=== PATIENT | male | born 1965 | race African-American/Black ===

== ENCOUNTER 2017-06-12 06:17 | Day surgery (SDC) | payer BC, OTHER ==
[2017-06-11 17:44] VITALS: BMI 28.0
[2017-06-12 10:48] VITALS: BP 128/93; PULSE 57; TEMP 97.7
== END 2017-06-12 10:50 | disposition home or self-care (01) ==
LOC: JASU-SURG 06:17
PROVIDERS: ATTEND Orthopaedic Surgery
PROC: 0SBC4ZZ Excision of Right Knee Joint, Percutaneous Endoscopic Approach (ICD-10-PCS; principal; 2017-06-12)
PROC: 0SBC4ZZ Excision of Right Knee Joint, Percutaneous Endoscopic Approach (ICD-10-PCS; 2017-06-12)
DX: M23.8X1 Other internal derangements of right knee (principal)
CPT/HCPCS: 88304-TC; 94760

== ENCOUNTER 2017-06-16 07:49 | Emergency (ER) | payer OTHER ==
[2017-06-16 08:00] VITALS: BP 136/54; PULSE 67; TEMP 98; BMI 28.0
--- NOTE | 2017-06-16 08:15 | PDOC ---
History of Present Illness - General Chief Complaint: Revisit,Wound Recheck Stated Complaint: WOUND CHECK Time Seen by Provider: 06/16/17 08:13 History Source: Patient Exam Limitations: No Limitations - History of Present Illness Initial Comments: 06/16/17 08:14 CHIEF COMPLAINT: Feels dressing to right knee is too tight HISTORY OF PRESENT ILLNESS: Patient is a 52-year-old male, history of asthma and meniscal injury to right knee status post meniscal repair on 06/12/[address] Carson. Here today complaining dressing is too tight. Denies any numbness or tingling, no erythema. No fever. Able to ambulate with use of a cane. She has been walking around states he can't still has not been elevating leg. Denies any calf pain, no chest pain or shortness of breath. REVIEW OF SYSTEMS: GENERAL: Afebrile, A&O x3 RESPIRATORY: No cough, wheezing, or hemoptysis. CARDIAC: No CP or SOB MUSCULOSKELETAL: Pain to right knee, postsurgical swelling to generalized right leg. SKIN : No erythema, no edema. NEUROLOGICAL: Denies any numbness or tingling. PHYSICAL EXAM: GENERAL: The patient is awake, alert, and fully oriented, in no acute distress. HEAD: Normal with no signs of trauma. RESPIRATORY: Lungs clear bilaterally no rhonchi, rales, or wheezes CARDIAC: S1-S2 audible, no murmur rub or gallop EXTREMITIES: Decreased range of motion to right knee related to pain and dressing, limited examination related to postsurgical changes. +2 edema to generalized leg. No visible ecchymosis. +3 popliteal pulse. Negative Homans sign. No calf pain or tenderness, no erythema. MUSCULOSKELETAL: No spinal point tenderness. SKIN: Warm, Dry, normal turgor, no erythema. 06/16/17 09:33 Past History - Past Medical History Allergies/Adverse Reactions: Allergies Allergy/AdvReac Type Severity Reaction Status Date / Time No Known Drug Allergies Allergy Verified 06/16/17 08:00 Home Medications: Ambulatory Orders Oxycodone HCl/Acetaminophen [Percocet 5-325 mg Tablet -] 1 - 2 tab PO Q6H #60 tab MDD 6 06/12/17 Asthma: Yes COPD: No Diabetes: No GI Disorders: No Disorders: No HTN: No Hypercholesterolemia: No Liver Disease: No Thyroid Disease: No - Suicide/Smoking/Psychosocial Hx Smoking History: Never smoked Have you smoked in the past 12 months: Yes Cigars Per Day: 1 Hx Alcohol Use: No Drug/Substance Use Hx: No Substance Use Type: None *Physical Exam - Vital Signs Last Vital Signs Temp Pulse Resp BP Pulse Ox 98 F 67 20 136/54 99 06/16/17 07:55 06/16/17 07:55 06/16/17 07:55 06/16/17 07:55 06/16/17 07:55 Medical Decision Making - Medical Decision Making 06/16/17 08:41 A/P: Patient with postsurgical pain to right knee is taking Percocet for pain and is controlled, ambulating well feels that dressing to right knee is too tight however dressing is intact. There is +2 edema noted to generalized leg. No calf pain.. I have paged Dr. Salazar to discuss. 06/16/17 09:33 Leo wrap removed from dressing and rewrapped, patient encouraged to keep leg elevated. I spoke to Dr. Salazar who states patient's leg will be edematous if not elevating. I have encouraged patient to increased elevation, ice to knee, follow-up with Dr. Carson on Saturday. Dr. Salazar agrees with current plan of care. *DC/Admit/Observation/Transfer Diagnosis at time of Disposition: Visit for wound check - Discharge Dispostion Disposition: HOME Condition at time of disposition: Stable Admit: No - Referrals Referrals: Deniz Carson MD [Staff Physician] - - Patient Instructions Additional Instructions: Ice and elevate when at rest If any increased pain, calf pain, fever, or any other concerns return to ER Please call Dr. Carson on Saturday to discuss your visit here. - Post Discharge Activity
== END 2017-06-16 09:18 | disposition home or self-care (01) ==
LOC: JERFT 07:49
DX: Z48.01 Encounter for change or removal of surgical wound dressing (principal)
CPT/HCPCS: 99281-25

== ENCOUNTER 2017-11-20 06:14 | Emergency (ER) | payer BC, OTHER | END 2017-11-20 06:41 | disposition left against medical advice (07) | LOC: JER 06:14 | DX: Z53.21 Procedure and treatment not carried out due to patient leaving prior to being seen by health care provider (principal) | CPT/HCPCS: 99281-25 ==

== ENCOUNTER 2018-10-23 13:29 | Emergency (ER) | payer BC, OTHER ==
--- NOTE | 2018-10-23 14:01 | PDOC ---
Rapid Medical Evaluation Chief Complaint: Head/Neck problem Time Seen by Provider: 10/23/18 13:58 Medical Evaluation: Allergies Allergy/AdvReac Type Severity Reaction Status Date / Time No Known Drug Allergies Allergy Verified 06/16/17 08:00 10/23/18 13:59 53 year old hit head on a truck prior to arrival. denies loc, nausea/ vomiting PE: patient alert ox3. small hematoma to left frontal area. A: scalp hematoma; head injury P: none patient to ER for further management of care. Discharge Disposition - Diagnosis Hematoma of scalp Qualifiers: Encounter type: initial encounter Qualified Code(s): S00.03XA - Contusion of scalp, initial encounter Head injury Qualifiers: Encounter type: initial encounter Qualified Code(s): S09.90XA - Unspecified injury of head, initial encounter - Referrals - Patient Instructions - Post Discharge Activity
[2018-10-23 14:05] VITALS: BP 126/75; PULSE 54; TEMP 98.3; BMI 28.0
--- NOTE | 2018-10-23 14:51 | PDOC ---
History of Present Illness - General Chief Complaint: Head/Neck problem Stated Complaint: HEAD INJURY Time Seen by Provider: 10/23/18 13:58 History Source: Patient Exam Limitations: No Limitations Past History - Travel Traveled outside of the country in the last 30 days: No Close contact w/someone who was outside of country & ill: No - Past Medical History Allergies/Adverse Reactions: Allergies Allergy/AdvReac Type Severity Reaction Status Date / Time No Known Drug Allergies Allergy Verified 06/16/17 08:00 Home Medications: Ambulatory Orders Albuterol Sulfate Inhaler - [Ventolin HFA Inhaler -] 1 puff IH Q4H PRN 10/23/18 Asthma: Yes COPD: No Diabetes: No GI Disorders: No Disorders: No HTN: No Hypercholesterolemia: No Liver Disease: No Thyroid Disease: No - Immunization History Immunization Up to Date: Yes - Suicide/Smoking/Psychosocial Hx Smoking History: Current some day smoker Have you smoked in the past 12 months: Yes Cigars Per Day: 4 Information on smoking cessation initiated: Yes Hx Alcohol Use: No Drug/Substance Use Hx: No Substance Use Type: None Review of Systems - Review of Systems Able to Perform ROS?: Yes Comments:: 10/23/18 14:49 CONSTITUTIONAL: Absent: fever, chills, diaphoresis, generalized weakness, malaise, loss of appetite HEENT: Absent: rhinorrhea, nasal congestion, throat pain, throat swelling, difficulty swallowing, mouth swelling, ear pain, eye pain, visual Changes MUSCULOSKELETAL: Absent: myalgia, arthralgia, joint swelling SKIN: Present: hematoma Absent: rash, itching, pallor NEUROLOGIC: Absent: headache, focal weakness or paresthesias, dizziness, unsteady gait, seizure, mental status changes, bladder or bowel incontinence PSYCHIATRIC: Absent: anxiety, depression, suicidal or homicidal ideation, hallucinations. Is the patient limited Stateless proficient: No *Physical Exam - Vital Signs Last Vital Signs Temp Pulse Resp BP Pulse Ox 98.3 F 54 L 16 126/75 97 10/23/18 13:59 10/23/18 13:59 10/23/18 13:59 10/23/18 13:59 10/23/18 13:59 - Physical Exam Comments: 10/23/18 15:06 GENERAL: The patient is awake, alert, and fully oriented, in no acute distress. HEAD: Normal with no signs of trauma. EYES: Pupils equal, round and reactive to light, extraocular movements intact, sclera anicteric, conjunctiva clear. EXTREMITIES: Normal range of motion, no edema. NEUROLOGICAL: Normal speech, normal gait. PSYCH: Normal mood, normal affect. SKIN: Hematoma present to the L forehead approximately 1cm round. No active bleeding or laceration. Warm, Dry, normal turgor, no rashes or lesions noted. Medical Decision Making - Medical Decision Making 10/23/18 15:08 The patient is a 53-year-old male with no past medical history who presents to the emergency department today for a bump to his forehead. The patient states he was at work when he banged the top of his head on a truck. He states that he wanted to get the bump checked out. He denies losing consciousness or vomiting. Denies lightheadedness and dizziness. A/P: Hematoma On exam pt with a 1cm round hematoma to the L forehead. No laceration present. Pt neurologically intact with no focal findings No LOC Will give symptomatic treatment for hematoma. DC home I discussed the physical exam findings, ancillary test results and final diagnoses with the patient. I answered all of the patient's questions. The patient was satisfied with the care received and felt comfortable with the discharge plan and treatment plan. The Patient agrees to follow up with the primary care physician/specialist within 24-72 hours. Return precautions were given. *DC/Admit/Observation/Transfer Diagnosis at time of Disposition: Hematoma of scalp Qualifiers: Encounter type: initial encounter Qualified Code(s): S00.03XA - Contusion of scalp, initial encounter Head injury Qualifiers: Encounter type: initial encounter Qualified Code(s): S09.90XA - Unspecified injury of head, initial encounter - Discharge Dispostion Disposition: HOME Condition at time of disposition: Stable Decision to Admit order: No - Referrals Referrals: Arnoldo Alberts MD [Primary Care Provider] - - Patient Instructions Printed Discharge Instructions: DI for Closed Head Injury Additional Instructions: You were evaluated for your scalp hematoma This is a bruise Apply ice to the area for twenty minute intervals You may switch to heat in one week Take Ibuprofen 800mg (4 200mg tabs) every 8 hours as needed for pain Follow up with your primary care doctor this week Return to the ER for any new or worsening symptoms - Post Discharge Activity Forms/Work/School Notes: Back to Work
== END 2018-10-23 14:55 | disposition home or self-care (01) ==
LOC: JER 13:29 → JERFT 13:29
DX: S00.83XA Contusion of other part of head, initial encounter (principal); V68.4XXA Person boarding or alighting a heavy transport vehicle injured in noncollision transport accident, initial encounter; Y92.488 Other paved roadways as the place of occurrence of the external cause; Y93.89 Activity, other specified; Y99.0 Civilian activity done for income or pay
CPT/HCPCS: 99281-25

== ENCOUNTER 2020-04-01 23:26 | Inpatient (IN) | payer BC ==
[2020-04-02] MEDS ORDERED: LIDOCAINE HCL 2% JELLY 10 ML CARTRIDGE UR ONE (00:30)
[2020-04-02] MEDS ORDERED: LIDOCAINE HCL 2% JELLY (5 ML/TUBE) ONE (00:32)
[2020-04-02 00:50] LABS: BASO % 0.2 % (0-2.0); EOS % 0.7 % (0-4.5); HEMATOCRIT 37.4 % (35.4-49); HEMOGLOBIN 12.7 GM/dL (11.7-16.9); LYMPH % 8.2 % (8-40); MCH 30.8 pg (25.7-33.7); MCHC 33.9 g/dl (32.0-35.9); MEAN CELL VOLUME 90.8 fl (80-96); MEAN PLT VOLUME 7.8 fl (7.5-11.1); MONO % 8.9 % (3.8-10.2); PLATELET COUNT 301 K/MM3 (134-434); RBC 4.12 M/mm3 (4.00-5.60); RDW 13.3 % (11.9-15.9); WHITE BLOOD COUNT 9.1 K/mm3 (4.0-10.0)
[2020-04-02 01:15] LABS: POTASSIUM 4.6 mmol/L (3.5-5.1)
[2020-04-02 01:17] LABS: CALCIUM 8.7 mg/dL (8.5-10.1)
[2020-04-02 01:18] LABS: ALBUMIN 3.6 g/dl (3.4-5.0); BLOOD UREA NITROGEN 26.9 mg/dL (7-18); MAGNESIUM 2.3 mg/dL (1.8-2.4)
[2020-04-02 01:21] LABS: CREATININE 5.7 mg/dL (0.55-1.3); PHOSPHOROUS 3.8 mg/dL (2.5-4.9)
[2020-04-02 01:22] LABS: BILIRUBIN,TOTAL 0.5 mg/dL (0.2-1); TOT PROT 7.5 g/dl (6.4-8.2)
[2020-04-02 01:28] LABS: EPI CELLS 4 /uL (0-25.1); HYALINE CASTS 0 /uL (0-3.1); PH,URINE 5.5 (5.0-8.0); URINE APPEARANCE CLEAR; URINE BACTERIA 4 /uL (0-1359); URINE BILIRUBIN NEGATIVE (NEGATIVE); URINE COLOR YELLOW; URINE GLUCOSE (UA) NEGATIVE (NEGATIVE); URINE KETONE NEGATIVE (NEGATIVE); URINE LEUK ESTERASE NEGATIVE (NEGATIVE); URINE NITRITE NEGATIVE (NEGATIVE); URINE PROTEIN NEGATIVE (NEGATIVE); URINE RBC 27 /uL (0-23.9); URINE UROBILINOGEN 0.2 mg/dL (0.2-1.0); URINE WBC 23 /uL (0-25.8)
[2020-04-02] MEDS ORDERED: SODIUM CHLORIDE 1,000 ML IV STA (01:50)
[2020-04-02] MEDS ORDERED: LACTATED RINGERS SOLUTION 1,000 ML IV SCH (05:15)
[2020-04-02] MEDS ORDERED: ONDANSETRON 4 MG/2 ML VIAL IVPUSH PRN (05:17)
[2020-04-02] MEDS ORDERED: ACETAMINOPHEN 325 MG TABLET (FP) ONE (05:56)
[2020-04-02] MEDS ORDERED: HEPARIN NA (PORCINE) 5,000 UNITS/ML 1ML VIAL ONE (05:57)
[2020-04-02] MEDS: HEPARIN NA (PORCINE) 5,000 UNITS/ML 1ML VIAL SQ SCH ×3 (06:02→21:10)
[2020-04-02] MEDS: ACETAMINOPHEN 325 MG TABLET (FP) PO PRN ×4 (06:02→21:30)
[2020-04-02] MEDS ORDERED: TAMSULOSIN HCL 0.4 MG CAP ONE (07:56)
[2020-04-02] MEDS: TAMSULOSIN HCL 0.4 MG CAP PO SCH (08:02)
[2020-04-02] MEDS ORDERED: ALBUTEROL SO4 HFA INHALER IH PRN (11:18)
[2020-04-02 11:24] VITALS: BMI 26.6
[2020-04-02] MEDS: SODIUM CHLORIDE 1,000 ML IV SCH ×2 (12:15→20:34)
[2020-04-02 16:54] LABS: POTASSIUM 4.1 mmol/L (3.5-5.1)
[2020-04-02 16:56] LABS: CALCIUM 8.1 mg/dL (8.5-10.1)
[2020-04-02 16:57] LABS: ALBUMIN 2.8 g/dl (3.4-5.0)
[2020-04-02 17:00] LABS: CREATININE 1.8 mg/dL (0.55-1.3)
[2020-04-02 17:01] LABS: BILIRUBIN,TOTAL 0.3 mg/dL (0.2-1)
[2020-04-02 19:03] LABS: PHENCYCLIDINE,URINE NEGATIVE ng/ml (CUTOFF=25); URINE BARBITURATES NEGATIVE ng/ml (CUTOFF=200); URINE BENZODIAZEPINES NEGATIVE ng/ml (CUTOFF=200)
[2020-04-02 19:05] LABS: METHADONE, UR NEGATIVE ng/ml (CUTOFF=300)
[2020-04-02 19:27] LABS: URINE AMPHETAMINES NEGATIVE ng/ml (CUTOFF=500)
[2020-04-02 19:29] LABS: COCAINE, UR POSITIVE ng/ml (CUTOFF=300); OPIATES, URI POSITIVE ng/ml (CUTOFF=300)
[2020-04-02] MEDS ORDERED: PT OWN MED DRAWER 7, Y5N ONE (21:01)
[2020-04-02] MEDS: FLUTICASONE PROP 0.05% 16 GM NASAL SPRAY NS SCH (21:10)
[2020-04-02] MEDS: oxyCODONE HCL 5 MG TABLET PO PRN (21:29)
[2020-04-03] MEDS: ACETAMINOPHEN 325 MG TABLET (FP) PO PRN ×4 (00:48→17:14)
[2020-04-03] MEDS: SODIUM CHLORIDE 1,000 ML IV SCH ×3 (03:28→21:57)
[2020-04-03] MEDS: HEPARIN NA (PORCINE) 5,000 UNITS/ML 1ML VIAL SQ SCH ×3 (05:34→21:56)
[2020-04-03] MEDS: oxyCODONE HCL 5 MG TABLET PO PRN ×2 (05:36→17:12)
[2020-04-03] MEDS: TAMSULOSIN HCL 0.4 MG CAP PO SCH (09:02)
[2020-04-03] MEDS: FLUTICASONE PROP 0.05% 16 GM NASAL SPRAY NS SCH (09:03)
[2020-04-03 12:16] LABS: HEMATOCRIT 35.2 % (35.4-49); MCH 31.1 pg (25.7-33.7); MCHC 34.2 g/dl (32.0-35.9); MEAN CELL VOLUME 91.1 fl (80-96); MEAN PLT VOLUME 7.9 fl (7.5-11.1); PLATELET COUNT 276 K/MM3 (134-434); RBC 3.86 M/mm3 (4.00-5.60); WHITE BLOOD COUNT 6.4 K/mm3 (4.0-10.0)
[2020-04-03 12:31] LABS: POTASSIUM 4.4 mmol/L (3.5-5.1)
[2020-04-03 12:33] LABS: CALCIUM 8.4 mg/dL (8.5-10.1)
[2020-04-03 12:34] LABS: ALBUMIN 2.7 g/dl (3.4-5.0); MAGNESIUM 2.1 mg/dL (1.8-2.4)
[2020-04-03 12:37] LABS: PHOSPHOROUS 2.2 mg/dL (2.5-4.9)
[2020-04-03 12:38] LABS: BILIRUBIN,TOTAL 0.3 mg/dL (0.2-1); TOT PROT 6.2 g/dl (6.4-8.2)
[2020-04-03] MEDS ORDERED: BISACODYL 5 MG TABLET.DR (FP) PO ONE (20:07)
[2020-04-03] MEDS ORDERED: MELATONIN 5 MG TABLETS PO ONE (22:35)
[2020-04-04] MEDS: HEPARIN NA (PORCINE) 5,000 UNITS/ML 1ML VIAL SQ SCH (05:18)
[2020-04-04] MEDS: oxyCODONE HCL 5 MG TABLET PO PRN (06:27)
[2020-04-04] MEDS: ACETAMINOPHEN 325 MG TABLET (FP) PO PRN (06:27)
[2020-04-04] MEDS: TAMSULOSIN HCL 0.4 MG CAP PO SCH (08:33)
[2020-04-04] MEDS ORDERED: IBUPROFEN 600 MG TABLET (FP) PO PRN (08:51)
[2020-04-04] MEDS ORDERED: PT OWN MED DRAWER 7, Y5N ONE (09:49)
[2020-04-04] MEDS: FLUTICASONE PROP 0.05% 16 GM NASAL SPRAY NS SCH (11:07)
[2020-04-04] MEDS ORDERED: MELATONIN 5 MG TABLETS PO ONE ×2 (22:19→22:45)
[2020-04-05] MEDS: TAMSULOSIN HCL 0.4 MG CAP PO SCH (08:34)
[2020-04-05] MEDS: FLUTICASONE PROP 0.05% 16 GM NASAL SPRAY NS SCH (09:59)
[2020-04-05 10:55] VITALS: BP 138/85; PULSE 77; TEMP 97.5
== END 2020-04-05 14:35 | disposition home or self-care (01) | DRG 684 ==
LOC: JER 23:26 → JERBED 04-02 02:55 → J5S 04-02 10:51
PROVIDERS: ADMIT Hospitalist; ATTEND Internal Medicine
DX: N17.9 Acute kidney failure, unspecified (principal); R33.9 Retention of urine, unspecified; F14.920 Cocaine use, unspecified with intoxication, uncomplicated; F17.210 Nicotine dependence, cigarettes, uncomplicated; Z87.09 Personal history of other diseases of the respiratory system; Z87.438 Personal history of other diseases of male genital organs
CPT/HCPCS: 36415; 71045-TC-FY; 76775-TC; 80053; 80307; 81003; 83735; 84100; 85025; 85027; 87086; 93005; 93010; 99285-25; C9803; J1644; U0003

== ENCOUNTER 2020-06-17 14:22 | Emergency (ER) | payer BC ==
[2020-06-17 15:33] VITALS: BP 115/69; PULSE 83; TEMP 98.1; BMI 24.3
== END 2020-06-17 18:40 | disposition left against medical advice (07) ==
LOC: JER 14:22
DX: R10.31 Right lower quadrant pain (principal); K35.30 Acute appendicitis with localized peritonitis, without perforation or gangrene
CPT/HCPCS: 36415; 74177-TC; 80053; 81003; 83690; 85025; 87086; 99283-25; 99285-25; Q9967

== ENCOUNTER → 2020-06-17 | Emergency (ER) | payer BC ==
[2020-06-17 11:47] VITALS: BP 114/68; PULSE 80; TEMP 98.1; BMI 28.0
[2020-06-17 13:04] LABS: BASO % 0.4 % (0-2.0); EOS % 2.2 % (0-4.5); HEMOGLOBIN 12.4 GM/dL (11.7-16.9); LYMPH % 10.7 % (8-40); MCH 31.2 pg (25.7-33.7); MCHC 34.3 g/dl (32.0-35.9); MEAN CELL VOLUME 90.8 fl (80-96); MEAN PLT VOLUME 7.8 fl (7.5-11.1); MONO % 5.7 % (3.8-10.2); PLATELET COUNT 243 K/MM3 (134-434); RBC 3.97 M/mm3 (4.00-5.60); RDW 13.9 % (11.9-15.9); WHITE BLOOD COUNT 10.8 K/mm3 (4.0-10.0)
[2020-06-17 13:24] LABS: CALCIUM 9.2 mg/dL (8.5-10.1)
[2020-06-17 13:25] LABS: ALBUMIN 3.6 g/dl (3.4-5.0); BLOOD UREA NITROGEN 17.5 mg/dL (7-18)
[2020-06-17 13:26] LABS: URINE APPEARANCE CLEAR; URINE BILIRUBIN NEGATIVE (NEGATIVE); URINE COLOR YELLOW; URINE GLUCOSE (UA) NEGATIVE (NEGATIVE); URINE KETONE TRACE (NEGATIVE); URINE LEUK ESTERASE NEGATIVE (NEGATIVE); URINE NITRITE NEGATIVE (NEGATIVE); URINE PROTEIN NEGATIVE (NEGATIVE); URINE UROBILINOGEN 0.2 mg/dL (0.2-1.0)
[2020-06-17 13:28] LABS: CREATININE 1.2 mg/dL (0.55-1.3)
[2020-06-17 13:29] LABS: BILIRUBIN,TOTAL 0.5 mg/dL (0.2-1)
== END | disposition left against medical advice (07) ==
LOC: JER 11:32
DX: R10.31 Right lower quadrant pain (principal)
CPT/HCPCS: 36415; 80053; 81003; 83690; 85025; 87086; 99283-25

== ENCOUNTER 2020-12-14 18:33 | Inpatient (IN) | payer BC, OTHER ==
[2020-12-14 19:25] VITALS: BMI 26.7
[2020-12-14] MEDS ORDERED: guaiFENesin 200 MG/10 ML 10 ML UNIT-DOSE CUPS PO PRN (20:26)
[2020-12-14] MEDS ORDERED: NALOXONE (NARCAN) HCL 4 MG/0.1 ML SPRAY NS PRN (20:26)
[2020-12-14] MEDS ORDERED: BISMUTH SUBSALICYLATE 524 MG/30 ML PO PRN (20:26)
[2020-12-14] MEDS ORDERED: IBUPROFEN 400 MG TABLET (FP) PO PRN (20:26)
[2020-12-14] MEDS ORDERED: ACETAMINOPHEN 325 MG TABLET (FP) PO PRN ×2 (20:26)
[2020-12-14] MEDS ORDERED: MAGNESIUM CITRATE 300 ML BOTTLE PO PRN (20:26)
[2020-12-14] MEDS ORDERED: NICOTINE 10 MG CARTRIDGE (INHALER) IH PRN (20:26)
[2020-12-14] MEDS ORDERED: methaDONE HCL 10 MG TABLET (FOR DETOX USE ONLY) PO ONE (20:26)
[2020-12-14] MEDS ORDERED: NALOXONE HCL 0.4 MG/ML VIAL IM PRN (20:26)
[2020-12-14] MEDS ORDERED: P-EPHED 60MG/TRIPROLIDI 2.5MG TABLET PO PRN (20:26)
[2020-12-14] MEDS ORDERED: cloNIDine HCL 0.1 MG TABLET PO PRN (20:26)
[2020-12-14] MEDS ORDERED: MAGNESIUM HYDROX 2400MG/30ML ORAL SUSPENSION 30 ML CUP PO PRN (20:26)
[2020-12-14] MEDS ORDERED: MAG HYDROX/AL HYDROX/SIMETH 30 ML UNIT-DOSE CUP PO PRN (20:26)
[2020-12-14] MEDS ORDERED: DICYCLOMINE HCL 10 MG CAPSULE PO PRN (20:26)
[2020-12-14] MEDS ORDERED: MENTHOL/PHENOL 1 EACH UD MM PRN (20:26)
[2020-12-14] MEDS: THIAMINE HCL 100 MG TABLET (FP) PO SCH (22:17)
[2020-12-14] MEDS: MELATONIN 5 MG TABLETS PO SCH (22:17)
[2020-12-15] MEDS: TAMSULOSIN HCL 0.4 MG CAP PO SCH (08:00)
[2020-12-15] MEDS ORDERED: methaDONE HCL 10 MG TABLET (FOR DETOX USE ONLY) ONE (09:39)
[2020-12-15] MEDS: PRENATAL VITAMINS W/ FOLIC ACID TABLET (FP) PO SCH (10:06)
[2020-12-15 11:06] LABS: ALBUMIN 3.2 g/dl (3.4-5.0); BLOOD UREA NITROGEN 12.2 mg/dL (7-18)
[2020-12-15 11:09] LABS: CREATININE 1.3 mg/dL (0.55-1.3)
[2020-12-15 11:11] LABS: BILIRUBIN,TOTAL 0.3 mg/dL (0.2-1); TOT PROT 6.5 g/dl (6.4-8.2)
[2020-12-15 11:14] LABS: HEMATOCRIT 39.3 % (35.4-49); HEMOGLOBIN 13.3 GM/dL (11.7-16.9); MCH 30.9 pg (25.7-33.7); MEAN PLT VOLUME 7.8 fl (7.5-11.1); PLATELET COUNT 241 10^3/uL (134-434); RBC 4.32 M/mm3 (4.00-5.60); RDW 13.5 % (11.9-15.9); WHITE BLOOD COUNT 4.6 K/mm3 (4.0-10.0)
[2020-12-15] MEDS: diazePAM 5 MG TABLET PO PRN ×2 (13:03→22:29)
[2020-12-15] MEDS: MELATONIN 5 MG TABLETS PO SCH (22:28)
[2020-12-15] MEDS: THIAMINE HCL 100 MG TABLET (FP) PO SCH (22:28)
[2020-12-15] MEDS: METHOCARBAMOL 500 MG TABLET PO PRN (22:28)
[2020-12-15] MEDS: ALBUTEROL SO4 HFA INHALER IH PRN (22:28)
[2020-12-16] MEDS: diazePAM 5 MG TABLET PO PRN ×4 (05:33→22:28)
[2020-12-16] MEDS ORDERED: methaDONE HCL 10 MG TABLET (FOR DETOX USE ONLY) PO ONE (10:00)
[2020-12-16] MEDS: PRENATAL VITAMINS W/ FOLIC ACID TABLET (FP) PO SCH (10:15)
[2020-12-16] MEDS: TAMSULOSIN HCL 0.4 MG CAP PO SCH (10:16)
[2020-12-16] MEDS: METHOCARBAMOL 500 MG TABLET PO PRN ×2 (10:18→17:14)
[2020-12-16] MEDS: ALBUTEROL SO4 HFA INHALER IH PRN (17:17)
[2020-12-16] MEDS: THIAMINE HCL 100 MG TABLET (FP) PO SCH (22:26)
[2020-12-16] MEDS: MELATONIN 5 MG TABLETS PO SCH (22:26)
[2020-12-17] MEDS: diazePAM 5 MG TABLET PO PRN (06:46)
[2020-12-17] MEDS: TAMSULOSIN HCL 0.4 MG CAP PO SCH (07:30)
[2020-12-17 09:19] VITALS: BP 141/89; PULSE 85; TEMP 97.1
[2020-12-17] MEDS: PRENATAL VITAMINS W/ FOLIC ACID TABLET (FP) PO SCH (11:32)
[2020-12-18] MEDS ORDERED: methaDONE HCL 10 MG TABLET (FOR DETOX USE ONLY) PO ONE (10:00)
== END 2020-12-17 11:13 | disposition left against medical advice (07) | DRG 894 ==
LOC: YASAS 18:33 → Y3N 21:01
PROVIDERS: ADMIT Allergy & Immunology; ATTEND Allergy & Immunology
PROC: HZ2ZZZZ Detoxification Services for Substance Abuse Treatment (ICD-10-PCS; principal; 2020-12-14)
DX: F11.23 Opioid dependence with withdrawal (principal); F14.20 Cocaine dependence, uncomplicated; F17.290 Nicotine dependence, other tobacco product, uncomplicated; J45.20 Mild intermittent asthma, uncomplicated; N40.1 Benign prostatic hyperplasia with lower urinary tract symptoms; R39.11 Hesitancy of micturition
CPT/HCPCS: 36415; 80053; 85027; 86780; 93005; 93010; C9803; U0003; U0005